=== PATIENT | female | born 1970 | race African-American/Black ===

== ENCOUNTER 2019-07-30 16:06 | Outpatient (CLI) | payer OTHER ==
--- NOTE | 2019-07-30 16:29 | MMO ---
Bilateral MAMMO Bilat Screen [facility]. CLINICAL HISTORY: Patient is 49 years old and is seen for screening. The patient has no family history of breast cancer. The patient has no personal history of cancer. VIEWS: The views performed were: bilateral craniocaudal with tomosynthesis and bilateral mediolateral oblique with tomosynthesis. FILMS COMPARED: The present examination has been compared to a prior imaging study performed at [facility] on 07/04/2017. This study has been interpreted with the assistance of computer-aided detection. MAMMOGRAM FINDINGS: The breasts are heterogeneously dense, which could obscure a lesion on mammography. Benign calcifications are noted bilaterally. There are no suspicious masses, suspicious calcifications, or new areas of architectural distortion. IMPRESSION: THERE IS NO MAMMOGRAPHIC EVIDENCE OF MALIGNANCY. A ROUTINE FOLLOW-UP MAMMOGRAM IN 1 YEAR IS RECOMMENDED. THE RESULTS OF THIS EXAM WERE SENT TO THE PATIENT. ACR BI-RADS Category 2 - Benign finding MAMMOGRAPHY NOTE: 1. A negative mammogram report should not delay a biopsy if a dominant of clinically suspicious mass is present. 2. Approximately 10% to 15% of breast cancers are not detected by mammography. 3. Adenosis and dense breasts may obscure an underlying neoplasm. Reported by: WENDY GUILLORY MD Electonically Signed: [id number]
--- NOTE | 2019-07-30 16:34 | RAD ---
EXAM: XR Lumbar Spine 2 Or 3 View PROVIDED CLINICAL HISTORY: Right lumbar radiculopathy. Patient complains of low back pain and right-sided pain for one year. COMPARISON: None FINDINGS: There are 5 nonrib-bearing lumbar-type vertebral bodies. There is mild right convex rotoscoliosis of the thoracolumbar spine. The vertebral body heights and intervertebral disc spaces of the lumbar spine are within normal limits. There is no fracture or subluxation involving the lumbar spine. IMPRESSION: 1. Mild scoliosis thoracolumbar spine. 2. No fracture or subluxation.
== END 2019-07-30 16:07 | disposition home or self-care (01) ==
LOC: BICMAMMO 16:06
PROVIDERS: ATTEND Family Medicine
DX: Z12.31 Encounter for screening mammogram for malignant neoplasm of breast (principal); M54.16 Radiculopathy, lumbar region; M41.9 Scoliosis, unspecified
CPT/HCPCS: 72100; 77063; 77067

== ENCOUNTER 2019-10-28 13:08 | Outpatient (CLI) | payer OTHER ==
--- NOTE | 2019-10-28 15:03 | ULT ---
PELVIC ULTRASOUND: HISTORY: Followup with MRI showing fibroids in uterus. Real-time imaging of the pelvis was obtained both transabdominally as well as with an endovaginal pro be. The uterus measured 7.7 cm in length. Endometrium is somewhat ill-defined. It appears somewhat thickened and would place the better measurements in the 7 mm range. The uterus itself has a very h eterogeneous appearance which is related to multiple fibroids. These are not particularly discrete. One of the larger fibroids seen is 2 cm. The right and left adnexa are unremarkable in appearance, the right ovary being somewhat difficult to visualize. DOPPLER EVALUATION WITH SPECTRAL ANALYSIS: Normal flow is shown to both ovaries. IMPRESSION: Heterogeneous appearance of the uterus with multiple small fibroids. POS: [facility]
== END 2019-10-28 13:09 | disposition home or self-care (01) ==
LOC: SCSULT 13:08
PROVIDERS: ATTEND Neurological Surgery
DX: N83.8 Other noninflammatory disorders of ovary, fallopian tube and broad ligament (principal)
CPT/HCPCS: 76856

== ENCOUNTER 2021-10-18 15:59 | Outpatient (CLI) | payer OTHER | END 2021-10-18 16:00 | disposition home or self-care (01) | LOC: BICMAMMO 15:59 | PROVIDERS: ATTEND Family Medicine | DX: Z12.31 Encounter for screening mammogram for malignant neoplasm of breast (principal); Z80.3 Family history of malignant neoplasm of breast | CPT/HCPCS: 77063; 77067 ==

== ENCOUNTER 2024-01-02 09:32 | Outpatient (CLI) | payer OTHER | END 2024-01-02 09:33 | disposition home or self-care (01) | LOC: DTY/OP 09:32 | PROVIDERS: ATTEND Psychiatry & Neurology Neurology | DX: E66.9 Obesity, unspecified (principal); Z68.34 Body mass index [BMI] 34.0-34.9, adult | CPT/HCPCS: 97802 ==

== ENCOUNTER 2024-03-01 10:16 | Outpatient (CLI) | payer OTHER | END 2024-03-01 10:17 | disposition home or self-care (01) | LOC: DTY/OP 10:16 | PROVIDERS: ATTEND Psychiatry & Neurology Neurology | DX: E66.9 Obesity, unspecified (principal) | CPT/HCPCS: 97802 ==

== ENCOUNTER 2025-09-20 11:48 | Outpatient (CLI) | payer OTHER | END 2025-09-20 11:49 | disposition home or self-care (01) | LOC: BICRAD 11:48 | PROVIDERS: ATTEND Family Medicine | DX: M79.672 Pain in left foot (principal) ==